=== PATIENT | male | born 1985 | race African-American/Black ===

== ENCOUNTER 2020-05-18 17:06 | Emergency (ER) | payer SELFPAY ==
[~2020-05-18] VITALS: Ht 193 cm; Wt 81.6 kg
[2020-05-18 17:13] VITALS: BP 127/84
[2020-05-18] MEDS ORDERED: LORazepam 2MG/ML-1ML VIAL ONE (18:20)
[2020-05-18] MEDS ORDERED: LORazepam 2MG/ML-1ML VIAL IV ONE (18:30)
== END 2020-05-18 20:45 ==
LOC: ER 17:06 → EDBD 17:06 → ER 20:45
CPT/HCPCS: 96374; 99283; J2060; 93005